=== PATIENT | female | born 1975 | race Two or more races ===

== ENCOUNTER 2020-05-19 07:30 | Inpatient (IN) | payer OTHER ==
[~2020-05-19] VITALS: Ht 170.2 cm; Wt 115.2 kg
== END 2020-05-25 12:10 | disposition home or self-care (01) | DRG 743 ==
LOC: O/R 05-21 06:30 → OB/GYN 05-21 06:30 → SURH 05-21 07:30 → OB/GYN 05-21 18:29
PROVIDERS: ADMIT Specialist; ATTEND Specialist
PROC: 0UT20ZZ Resection of Bilateral Ovaries, Open Approach (ICD-10-PCS; 2020-05-21)
PROC: 0UT70ZZ Resection of Bilateral Fallopian Tubes, Open Approach (ICD-10-PCS; 2020-05-21)
PROC: 0UT90ZZ Resection of Uterus, Open Approach (ICD-10-PCS; principal; 2020-05-21 15:15)
PROC: 30233N1 Transfusion of Nonautologous Red Blood Cells into Peripheral Vein, Percutaneous Approach (ICD-10-PCS; 2020-05-23)
DX: N72 Inflammatory disease of cervix uteri (principal); D27.1 Benign neoplasm of left ovary; D64.9 Anemia, unspecified; N88.8 Other specified noninflammatory disorders of cervix uteri; R19.00 Intra-abdominal and pelvic swelling, mass and lump, unspecified site